=== PATIENT | female | born 1995 | race Two or more races ===

== ENCOUNTER 2025-02-06 20:20 | Emergency (ER) | payer OTHER ==
[~2025-02-06] VITALS: Ht 160 cm; Wt 75.5 kg
[2025-02-06] MEDS ORDERED: HYDR-3713 PO (21:56)
[2025-02-06] MEDS ORDERED: [UNRECOGNIZED DRUG - SUPPLY] (22:00)
[2025-02-06] MEDS: NORCO 5/325MG TABLET (HOME DOSE PACK) PO ONE (22:15)
[2025-02-06 22:21] VITALS: BP 116/68; TEMP 98.2; O2SAT 98
== END 2025-02-06 22:35 | disposition home or self-care (01) ==
LOC: M ED 20:20
DX: S32.10XA Unspecified fracture of sacrum, initial encounter for closed fracture (principal); S90.32XA Contusion of left foot, initial encounter; W10.9XXA Fall (on) (from) unspecified stairs and steps, initial encounter; E11.9 Type 2 diabetes mellitus without complications; I10 Essential (primary) hypertension; Y92.9 Unspecified place or not applicable; Y93.89 Activity, other specified; Y99.9 Unspecified external cause status; Z79.1 Long term (current) use of non-steroidal anti-inflammatories (NSAID)